=== PATIENT | female | born 1985 | race African-American/Black ===

== ENCOUNTER 2021-09-19 02:48 | Inpatient (IN) | payer MEDICAID ==
[~2021-09-19] VITALS: Ht 172.7 cm; Wt 128.4 kg
[~2021-09-19 02:48] MED LIST: VENTOLIN; [UNRECOGNIZED DRUG - OTHER]
[2021-09-19] MEDS ORDERED: LACTATED RINGERS 1,000 ML IV ONE (03:30)
[2021-09-19] MEDS ORDERED: MAGNESIUM 2 G PREMIX 50 ML IV SCH (04:15)
[2021-09-19] MEDS ORDERED: DEXT 5%/LR + PITOCIN 20UNITS/L 1,000 ML IV SCH ×2 (04:15→04:27)
[2021-09-19] MEDS ORDERED: MAGNESIUM 4 G PREMIX 100 ML IV SCH (04:15)
[2021-09-19] MEDS ORDERED: AMPICILLIN 2GM in NS 100ML 100 ML IV SCH (04:15)
[2021-09-19] MEDS ORDERED: AZITHROMYCIN 500MG/250ML 250 ML IV NR (04:45)
[2021-09-19] MEDS: AMPICILLIN 1,000 MG in SODIUM CHLORIDE 0.9% 50 ML IV SCH ×4 (04:49→23:29)
[2021-09-19 04:53] LABS: CLARITY URINE CLEAR (CLEAR); COLOR URINE YELLOW (YELLOW); KETONES URINE NEGATIVE (NEGATIVE); LEUKOCYTE ESTERASE URINE 2+ (NEGATIVE); NITRITE URINE NEGATIVE (NEGATIVE); OCCULT BLOOD URINE 2+ (NEGATIVE); PH URINE 5.5 (4.5-8.0); PROTEIN URINE 1+ (NEGATIVE); SPECIFIC GRAVITY URINE 1.023 (1.005-1.030)
[2021-09-19] MEDS ORDERED: BETAMETHASONE ACET/BETAMET 30 MG/5 ML VIAL IM NR (05:00)
[2021-09-19] MEDS ORDERED: BETAMETHASONE ACET/BETAMET 30 MG/5 ML VIAL IM ONE (05:00)
[2021-09-19 05:05] LABS: *AMPHETAMINES SCREEN URINE NEGATIVE (NEGATIVE); *BARBITURATES SCREEN URINE NEGATIVE (NEGATIVE); *BENZODIAZEPINES SCREEN URINE NEGATIVE (NEGATIVE); *COCAINE SCREEN URINE NEGATIVE (NEGATIVE); METHADONE URINE SCREEN NEGATIVE (NEGATIVE); OPIATES URINE SCREEN NEGATIVE (NEGATIVE)
[2021-09-19 05:06] LABS: CANNABINOID URINE SCREEN NEGATIVE (NEGATIVE); PHENCYCLIDINE URINE SCREEN NEGATIVE (NEGATIVE)
[2021-09-19 05:37] LABS: BASOPHILS % 0.4 % (0.0-2.0); EOSINOPHILS % 0.3 % (0.0-5.0); HEMATOCRIT. 32.9 % (36.0-48.0); HEMOGLOBIN. 11.2 g/dL (12.0-16.0); LYMPHOCYTES % 19.5 % (20.0-50.0); MEAN CORPUSCULAR VOLUME 88.4 fL (81.0-99.0); MEAN PLATELET VOLUME 8.2 fl (7.4-10.4); MONOCYTES % 5.5 % (2.0-8.0); NEUTROPHILS % 74.3 % (40.0-76.0); PLATELET 286 x1000/uL (130-400); RED BLOOD CELL COUNT 3.72 mill/uL (4.2-5.4); RED CELL DISTRIBUTION WIDTH 13.4 % (11.6-14.6)
[2021-09-19 05:50] LABS: INR 0.9; PARTIAL THROMBOPLASTIN TIME 29.3 sec (23.4-31.0)
[2021-09-19 05:57] LABS: CHLORIDE 108 mEq/L (98-107)
[2021-09-19 06:14] LABS: HEPATITIS B SURFACE ANTIGEN NEGATIVE
[2021-09-19] MEDS: MAGNESIUM 20 G PREMIX (L & D) 500 ML IV SCH ×2 (07:28→21:59)
[2021-09-19] MEDS: LACTATED RINGERS 1,000 ML IV SCH ×2 (11:30→21:52)
[2021-09-19] MEDS ORDERED: ACETAMINOPHEN 500MG TABLET PO NR (15:15)
[2021-09-19 21:59] VITALS: BP 131/73
[2021-09-20] MEDS ORDERED: AZITHROMYCIN 250 MG in DEXT 5% WATER 250 ML IV SCH (04:45)
[2021-09-20] MEDS ORDERED: BETAMETHASONE ACET/BETAMET 30 MG/5 ML VIAL IM SCH (05:00)
== END 2021-09-19 23:25 | disposition left against medical advice (07) | DRG 566 ==
LOC: OBSVTOIN 02:48 → 8 EST LDRP 02:48
PROVIDERS: ADMIT Obstetrics & Gynecology; ATTEND Obstetrics & Gynecology
DX: O42.912 Preterm premature rupture of membranes, unspecified as to length of time between rupture and onset of labor, second trimester (principal); J45.909 Unspecified asthma, uncomplicated; O99.512 Diseases of the respiratory system complicating pregnancy, second trimester; Z20.822 Contact with and (suspected) exposure to COVID-19; Z3A.25 25 weeks gestation of pregnancy; Z80.3 Family history of malignant neoplasm of breast
CPT/HCPCS: 36415; 76805; 76818; 80053; 80305; 81003; 82731; 83735; 85025; 86592; 86703; 86762; 86850; 86900; 87340; 87426; 96360; 96361; 96365; 96366; 96372; 99281; J0290; J0456; J0702; J3475; J7060; J7120